=== PATIENT | female | born 1960 | race Caucasian/White ===

== ENCOUNTER 2016-07-22 17:12 | Emergency (ER) | payer BC ==
[2016-07-22 19:31] VITALS: BP 134/76
--- NOTE | 2016-07-22 20:10 | UC ---
Respiratory Complaint HPI - HPI Summary HPI Summary: Cough, nasal congestion, laryngitis, wheezing starting about 5 days ago. Has had similar symptoms 2 other times starting in late May, getting exhausted. Sx have improved each time except for nagging cough. Denies fever over 100F. - History of Current Complaint Chief Complaint: UCGeneralIllness Stated Complaint: SORE THROAT,EAR,COUGH Time Seen by Provider: 07/22/16 19:45 Hx Obtained From: Patient ?: No Onset/Duration: Gradual Onset, Lasting Days Timing: Constant Severity Initially: Mild Severity Currently: Mild Character: Cough: Nonproductive Aggravating Factors: Deep Breaths, Recumbent Position Alleviating Factors: Upright Position Associated Signs And Symptoms: Positive: Wheezing, URI, Nasal Congestion, Hoarseness - Allergies/Home Medications Allergies/Adverse Reactions: Allergies Allergy/AdvReac Type Severity Reaction Status Date / Time Adhesive Tape Allergy ITCHY RASH Verified 07/22/16 19:31 PMH/Surg Hx/FS Hx/Imm Hx Endocrine History Of: Denies: Diabetes Cardiovascular History Of: Denies: Hypertension, Myocardial Infarction Respiratory History Of: Denies: COPD, Asthma GI/ History Of: Reports: Ulcer - HISTORY OF ULCERATIVE COLITIS- STATES UNDER CONTROL WITH PROBIOTIC AND BIOC Neurological History Of: Reports: Migraine - UNDER CONTROL- SINCE TAKING PROPRANOLOL - Surgical History Surgical History: Yes Surgery Procedure, Year, and Place: Hysterectomy. C5/6 NECK FUSION- [place]- 6 WEEKS AGO. TUBAL LIGATION. 3 LAPAROSCOPIES- FOR [place]OMETRIOS[place]- [place] [facility] [place]LE[place]ST[place] - Family History Known Family History: Positive: Hypertension - Social History Alcohol Use: Occasionally Substance Use Type: None Smoking Status (MU): Never Smoked Tobacco Review of Systems Constitutional: Negative Skin: Negative Eyes: Negative ENT: Sore Throat, Nasal Discharge Respiratory: Cough Cardiovascular: Negative Gastrointestinal: Negative Genitourinary: Negative Motor: Negative Neurovascular: Negative Musculoskeletal: Negative Neurological: Negative Psychological: Negative All Other Systems Reviewed And Are Negative: Yes Physical Exam Triage Information Reviewed: Yes Appearance: Well-Appearing, No Pain Distress, Well-Nourished Vital Signs: Initial Vital Signs Temp 97.5 F 07/22/16 19:24 Pulse 68 07/22/16 19:24 Resp 16 07/22/16 19:24 BP 134/76 07/22/16 19:24 Pulse Ox 100 07/22/16 19:24 ENT: Positive: Hearing grossly normal, Pharynx normal, Nasal congestion, TMs normal, Muffled/hoarse voice - hoarse Dental Exam: Normal Neck exam: Normal Neck: Positive: Supple, Nontender, No Lymphadenopathy Respiratory Exam: Other - occ cough Respiratory: Positive: Lungs clear, Normal breath sounds, No respiratory distress, No accessory muscle use Cardiovascular Exam: Normal Cardiovascular: Positive: RRR, No Murmur Musculoskeletal Exam: Normal Neurological Exam: Normal Neurological: Positive: Alert Psychological Exam: Normal Skin Exam: Normal Diagnostic Evaluation - Laboratory O2 Sat by Pulse Oximetry: 100 Respiratory Course/Dx - Differential Dx/Diagnosis Provider Diagnoses: URI, likely viral. laryngitis Discharge - Discharge Plan Condition: Stable Disposition: HOME Prescriptions: Albuterol HFA INHALER* [Ventolin HFA Inhaler*] 1 - 2 puff INH Q4H PRN #1 mdi PRN Reason: wheeze, cough Benzonatate CAP* [Tessalon 100 MG CAP*] 100 mg PO TID PRN #30 cap PRN Reason: Cough Guaifenesin-Codeine [Guaiatussin AC 100-10 mg/5Ml] 5 - 10 ml PO Q6H #240 ml MDD 40mL Patient Education Materials: Upper Respiratory Infection (ED), Laryngitis (ED) Referrals: Saul Martinez MD [Primary Care Provider] - Additional Instructions: Call or return if you develop increasing fever, shortness of breath, chest pain , bloody sputum, or otherwise worsen. If you have not improved at all after several days, contact your primary care physician or return here.
== END 2016-07-22 20:07 | disposition home or self-care (01) ==
LOC: UCCORT 17:12
DX: J06.9 Acute upper respiratory infection, unspecified (principal); J04.0 Acute laryngitis; Z90.49 Acquired absence of other specified parts of digestive tract
CPT/HCPCS: 99212; G0463

== ENCOUNTER 2017-05-07 10:43 | Emergency (ER) | payer BC ==
[2017-05-07 12:22] VITALS: BP 148/85
--- NOTE | 2017-05-07 12:59 | UC ---
Skin Complaint HPI - HPI Summary HPI Summary: URI with congestion and cough has been improving and is mainly resolved. The main reason for the visit is the rash that has been present for two weeks and is itchy. It started with one patch on the mid flank. it has spread to the trunk. No new foods, exposures, products. - History of Current Complaint Chief Complaint: UCRash Time Seen by Provider: 05/07/17 12:30 Stated Complaint: SKIN COMPLAINT Hx Obtained From: Patient Hx Last Menstrual Period: n/a ?: No Onset/Duration: Gradual Onset, Lasting Weeks, Still Present Skin Exposure Onset/Duration: Weeks Ago Timing: Constant Onset Severity: Moderate Current Severity: Moderate Location: Diffuse Character: Pruritus - Allergy/Home Medications Allergies/Adverse Reactions: Allergies Allergy/AdvReac Type Severity Reaction Status Date / Time Adhesive Tape Allergy ITCHY RASH Verified 05/07/17 12:22 Review of Systems Skin: Rash All Other Systems Reviewed And Are Negative: Yes PMH/Surg Hx/FS Hx/Imm Hx Previously Healthy: Yes - Surgical History Surgical History: Yes Surgery Procedure, Year, and Place: Hysterectomy. C5/6 NECK FUSION- [facility]- 2016. TUBAL LIGATION. 3 LAPAROSCOPIES- FOR ENDOMETRIOSIS- [place] [facility] [place]LE[place]ST[place] - Family History Known Family History: Positive: Hypertension - Social History Lives: With Family Alcohol Use: Occasionally Substance Use Type: None Smoking Status (MU): Never Smoked Tobacco Physical Exam Triage Information Reviewed: Yes Appearance: Well-Appearing, No Pain Distress, Well-Nourished Vital Signs: Initial Vital Signs Temp 99.2 F 05/07/17 12:15 Pulse 81 05/07/17 12:15 Resp 16 05/07/17 12:15 BP 148/85 05/07/17 12:15 Pulse Ox 100 05/07/17 12:15 Vital Signs Reviewed: Yes Eye Exam: Normal Eyes: Positive: Conjunctiva Clear ENT: Positive: Normal ENT inspection Neck: Positive: Supple, Nontender, No Lymphadenopathy. Negative: Nuchal Rigidity Respiratory: Positive: Lungs clear, Normal breath sounds, No respiratory distress, No accessory muscle use, Respiratory distress Cardiovascular: Positive: No Murmur, Pulses Normal, Brisk Capillary Refill Abdomen Description: Positive: Soft. Negative: Guarding Musculoskeletal: Positive: Strength Intact, ROM Intact, No Edema Neurological: Positive: Alert, Muscle Tone Normal. Negative: Fatigued Psychological: Positive: Age Appropriate Behavior Skin Exam: Other - one oval patch on the left flank with slight dry ring. There are other small patches scatterred about the trunk. There is red patch under the left breast. Course/Dx - Course Course Of Treatment: this is most c/w Pitariasis Rosea. We will treat symptomatically. We also talked about possible bx should symptoms not resolve. We discussed possible sarcoidosis should it not get better. She has no other signs or symptoms of systemic inflammation. - Diagnoses Provider Diagnoses: rash. uri Discharge - Discharge Plan Condition: Good Disposition: HOME Prescriptions: hydrOXYzine HCL TAB* [Atarax 25 MG TAB*] 25 mg PO TID PRN #20 tab PRN Reason: Itching Nystatin CREAM* [Nystatin Cream*] 1 applic TOPICAL BID #30 tube Triamcinolone 0.1% Oint (NF) [Triamcinolone Acetonide] 1 % TRANSDERM BID PRN # 30 oin PRN Reason: Rash Patient Education Materials: Pityriasis rosea (ED) Referrals: Erendira Mac MD [Primary Care Provider] -
== END 2017-05-07 12:58 | disposition home or self-care (01) ==
LOC: UCCORT 10:43
DX: R21 Rash and other nonspecific skin eruption (principal); J06.9 Acute upper respiratory infection, unspecified; Z91.048 Other nonmedicinal substance allergy status; Z90.710 Acquired absence of both cervix and uterus; Z90.49 Acquired absence of other specified parts of digestive tract
CPT/HCPCS: 99212; G0463

== ENCOUNTER 2018-04-21 12:53 | Emergency (ER) | payer BC ==
[2018-04-21 13:31] VITALS: BP 151/86
--- NOTE | 2018-04-21 14:17 | UC ---
Knee Pain HPI - HPI Summary HPI Summary: LEFT KNEE PAIN AND SWELLING X 2 DAYS NO KNOWN INJURY , RADIATION OF THE PAIN TO HER CALF AND LOWER LEG WORSE WITH WALKING , BETTER WITH REST AND ICE - History of Current Complaint Chief Complaint: UCLowerExtremity Stated Complaint: LT KNEE PAIN Time Seen by Provider: 04/21/18 13:45 Hx Obtained From: Patient Hx Last Menstrual Period: n/a ?: No Onset/Duration: Gradual Onset, Lasting Days - 2, Still Present Severity Initially: Moderate Severity Currently: Moderate Pain Intensity: 5 Character: Dull, Aching Aggravating Factor(s): Movement, Weight Bearing, Prolonged Standing, Stairs Alleviating Factor(s): Rest, Cold Associated Signs And Symptoms: Positive: Swelling. Negative: Redness, Bruising , Fever, Weakness, Numbness, Tingling Able to Bear Weight: Yes - Allergies/Home Medications Allergies/Adverse Reactions: Allergies Allergy/AdvReac Type Severity Reaction Status Date / Time Adhesive Tape Allergy ITCHY RASH Verified 05/07/17 12:22 Home Medications: Home Medications Acetaminophen [8 Hour Arthritis Pain Rel] 1,300 mg PO ONCE 04/21/18 [History Confirmed 04/21/18] PMH/Surg Hx/FS Hx/Imm Hx - Additional Past Medical History Additional PMH: HISTORY OF ULCERATIVE COLITIS- STATES UNDER CONTROL WITH PROBIOTIC AND BIOC HX OF OSTEOARTHRITIS - Surgical History Surgical History: Yes Surgery Procedure, Year, and Place: Hysterectomy. C5/6 NECK FUSION- [facility]- 2015. TUBAL LIGATION. 3 LAPAROSCOPIES- FOR ENDOMETRIOSIS- ONE DONE AT [facility] – [place]. CHOLECYSTECTOMY. LUMBAR FUSION - Family History Known Family History: Positive: Hypertension - Social History Alcohol Use: Occasionally Substance Use Type: None Smoking Status (MU): Never Smoked Tobacco Review of Systems All Other Systems Reviewed And Are Negative: Yes Constitutional: Positive: Negative Skin: Positive: Negative Eyes: Positive: Negative ENT: Positive: Negative Is Patient Immunocompromised?: No Physical Exam Triage Information Reviewed: Yes Appearance: Well-Appearing, Obese Vital Signs: Initial Vital Signs Temp 97.3 F 04/21/18 13:28 Pulse 80 04/21/18 13:28 Resp 17 04/21/18 13:28 BP 151/86 04/21/18 13:28 Pulse Ox 100 04/21/18 13:28 Vital Signs Reviewed: Yes Eye Exam: Normal Eyes: Positive: Conjunctiva Clear ENT: Positive: Normal ENT inspection, Hearing grossly normal, Pharynx normal Neck: Positive: Supple, Nontender, No Lymphadenopathy Respiratory: Positive: Chest non-tender, Lungs clear, Normal breath sounds Cardiovascular: Positive: RRR, No Murmur, Pulses Normal Musculoskeletal: Positive: Other: - LEFT KNEE : + SWELLING, + EFFUSION , DIFFUSE TENDERNESS, PAIN WITH ROM ON FLEXION , STABLE LIGAMENTS Diagnostics - Laboratory Diagnostic Studies Completed/Ordered: left knee xray : IMPRESSION: Degenerative changes medial compartment of the left knee. Degenerative changes. of the patellofemoral joint. Knee Pain Course/Dx - Differential Dx/Diagnosis Provider Diagnosis: Left knee pain Discharge - Sign-Out/Discharge Documenting (check all that apply): Patient Departure All imaging exams completed and their final reports reviewed: Yes - Discharge Plan Condition: Stable Disposition: HOME Prescriptions: Naproxen [Naproxen 500 mg tab] 500 mg PO BID #20 tablet. Patient Education Materials: Osteoarthritis (ED), Swollen Knee Joint (ED) Referrals: Erendira Mac MD [Primary Care Provider] - Ezio Mckay MD [Medical Doctor] - As Soon As Possible - Billing Disposition and Condition Condition: STABLE Disposition: Home
== END 2018-04-21 14:36 | disposition home or self-care (01) ==
LOC: UCCORT 12:53
DX: M25.562 Pain in left knee (principal)
CPT/HCPCS: 99211; G0463

== ENCOUNTER 2023-02-28 08:45 | Observation (INO) ==
[~2023-02-28 08:45] MED LIST: Buffered Lidocaine 1% SYRIN 1 ml INTRADERM ONE; Lactated Ringers 1000 ml BAG 1,000 ML IV SCH
[2023-05-29] MEDS ORDERED: Lactated Ringers 1000 ml BAG 1,000 ML IV SCH (06:00)
[2023-05-29] MEDS ORDERED: Buffered Lidocaine 1% SYRIN 1 ml INTRADERM ONE (06:00)
[2023-05-29] MEDS ORDERED: Famotidine IV 10 MG/ML 2 ml VIAL (20 mg) IV ONE (06:00)
[2023-05-29] MEDS ORDERED: Lidocaine 2% PF 5 ML VIAL ONE (10:44)
[2023-05-29] MEDS ORDERED: Glycopyrrolate IV 0.2 MG/ML 1 ML VIAL ONE (10:45)
[2023-05-29] MEDS ORDERED: fentaNYL 100 mcg/2 ml 50 MCG/ML VIAL ONE (10:45)
[2023-05-29] MEDS ORDERED: Ondansetron 4 mg VIAL 2 MG/ML 2 ml VIAL ONE ×2 (10:45→15:44)
[2023-05-29] MEDS ORDERED: Midazolam 2 mg/2 ml VIAL 1 mg/ml 2 ml VIAL (2 mg) ONE (10:45)
[2023-05-29 11:03] LABS: Rapid COVID-19 Molecular Undetected (Undetected)
[2023-05-29] MEDS ORDERED: ceFAZolin 2 GM PREMIX 2 GM/50 ML BAG ONE (11:33)
[2023-05-29] MEDS ORDERED: Buffered Lidocaine 1% SYRIN 1 ml ONE (11:33)
[2023-05-29] MEDS ORDERED: Tranexamic Acid 1 GM/100ML BAG 2,000 MG/200 ML BAG IV ONE (11:33)
[2023-05-29] MEDS ORDERED: Famotidine IV 10 MG/ML 2 ml VIAL (20 mg) ONE (11:33)
[2023-05-29] MEDS ORDERED: ROPIVACAINE 5 MG/ML 30 ML BTL (0.5%) ONE (11:52)
[2023-05-29] MEDS ORDERED: Bupivacaine 0.5% 50 ML MDV VIAL ONE (12:08)
[2023-05-29] MEDS ORDERED: Propofol 10 MG/ML 20 ML BTL ONE (12:42)
[2023-05-29] MEDS ORDERED: Rocuronium 50 mg VIAL 10 mg/ml 5 ml VIAL (50 mg) ONE ×2 (12:44→13:34)
[2023-05-29] MEDS ORDERED: fentaNYL 250 mcg/5 ml 50 MCG/ML 5 ml VIAL (250 MCG) ONE (12:57)
[2023-05-29] MEDS ORDERED: KETAMINE HCL 10 MG/ML 20 ml VIAL (200 MG) ONE (12:57)
[2023-05-29] MEDS ORDERED: HYDROmorphone 0.5 MG/0.5 ML SYRINGE ONE (12:57)
[2023-05-29] MEDS ORDERED: HYDROmorphone 1 MG/1 ML SYRINGE IV PRN (13:05)
[2023-05-29] MEDS ORDERED: Naloxone 0.4 mg VIAL 0.4 mg/ml 1 ml VIAL IV PRN (13:05)
[2023-05-29] MEDS ORDERED: fentaNYL 100 mcg/2 ml 50 MCG/ML VIAL IV PRN (13:05)
[2023-05-29] MEDS ORDERED: Ondansetron 4 mg VIAL 2 MG/ML 2 ml VIAL IV PRN ×2 (13:05→15:25)
[2023-05-29] MEDS ORDERED: Dexamethasone IV 4 MG/ML VIAL 1 ml VIAL ONE (13:12)
[2023-05-29] MEDS ORDERED: Lactulose 30 ml UDC PO PRN (15:25)
[2023-05-29] MEDS ORDERED: Morphine 2 MG/ML SYRINGE IV PRN (15:25)
[2023-05-29] MEDS ORDERED: Magnesium Hydroxide LIQ 30 ML UDC PO PRN (15:25)
[2023-05-29] MEDS ORDERED: Ondansetron ODT 4 mg TAB 4 MG TAB PO PRN (15:25)
[2023-05-29] MEDS: Lactated Ringers 1000 ml BAG 1,000 ML IV SCH (17:13)
[2023-05-29] MEDS ORDERED: Carboxymethylcellulos 1% OPTH 1 AMP BOTH EYES PRN (18:42)
[2023-05-29] MEDS: Magnesium Hydroxide LIQ 30 ML UDC PO SCH (20:13)
[2023-05-29] MEDS: ceFAZolin 1 GM ADVAN 1 GM in NS 0.9% 50 ML 50 ML IVPB SCH (20:53)
[2023-05-30] MEDS: Lactated Ringers 1000 ml BAG 1,000 ML IV SCH (03:48)
[2023-05-30] MEDS: ceFAZolin 1 GM ADVAN 1 GM in NS 0.9% 50 ML 50 ML IVPB SCH ×2 (05:00→11:20)
[2023-05-30 06:02] LABS: Platelet Count 242 10^3/uL (150-450)
[2023-05-30 06:23] LABS: Hematocrit 40.1 % (35-45); Hemoglobin 13.5 g/dL (11.5-14.3); Mean Platelet Volume 7.5 fL (7.5-11.2)
[2023-05-30 06:27] LABS: Calcium 8.7 mg/dL (8.6-10.3); Creatinine, Serum 0.86 mg/dL (0.51-0.95); Potassium 4.4 mmol/L (3.5-5.0); eGFR CKD-EPI 76.8 (>60)
[2023-05-30] MEDS: Magnesium Hydroxide LIQ 30 ML UDC PO SCH (08:42)
[2023-05-30] MEDS ORDERED: Vitamin THERAPEUTIC TAB PO SCH (09:00)
[2023-05-30 10:12] VITALS: BP 124/70
== END 2023-05-30 12:55 | disposition home or self-care (01) ==
LOC: AA 05-29 09:50 → INTOOBSV 05-29 09:50 → SSU 05-29 16:44
PROVIDERS: ADMIT Orthopaedic Surgery Adult Reconstructive Orthopaedic Surgery; ATTEND Orthopaedic Surgery Adult Reconstructive Orthopaedic Surgery

== ENCOUNTER 2024-02-05 13:18 | Observation (INO) ==
[~2024-02-05 13:18] MED LIST changes: -Buffered Lidocaine 1% SYRIN 1 ml INTRADERM ONE; +HYDROmorphone 1 MG/1 ML SYRINGE IV PRN; -Lactated Ringers 1000 ml BAG 1,000 ML IV SCH; +Naloxone 0.4 mg VIAL 0.4 mg/ml 1 ml VIAL IV PRN; +Ondansetron 4 mg VIAL 2 MG/ML 2 ml VIAL IV PRN; +fentaNYL 100 mcg/2 ml 50 MCG/ML VIAL IV PRN
[2024-02-05] MEDS ORDERED: Ondansetron 4 mg VIAL 2 MG/ML 2 ml VIAL ONE (13:34)
[2024-02-05] MEDS ORDERED: Dexamethasone IV 4 MG/ML VIAL 1 ml VIAL ONE ×2 (13:34→14:51)
[2024-02-05] MEDS ORDERED: fentaNYL 250 mcg/5 ml 50 MCG/ML 5 ml VIAL (250 MCG) ONE (13:34)
[2024-02-05] MEDS ORDERED: Lidocaine 2% PF 5 ML VIAL ONE (13:34)
[2024-02-05] MEDS ORDERED: Propofol 10 MG/ML 20 ML BTL ONE ×3 (13:34→16:55)
[2024-02-05] MEDS ORDERED: Midazolam 2 mg/2 ml VIAL 1 mg/ml 2 ml VIAL (2 mg) ONE (13:34)
[2024-02-05] MEDS ORDERED: Tranexamic Acid 1 GM/100ML BAG 2,000 MG/200 ML BAG IV ONE (13:49)
[2024-02-05] MEDS ORDERED: ceFAZolin 2 GM PREMIX 2 GM/50 ML BAG ONE (13:50)
[2024-02-05 14:10] LABS: Rapid COVID-19 Molecular Undetected (Undetected)
[2024-02-05] MEDS ORDERED: Scopolamine 1 mg/72hr PATCH ONE (14:15)
[2024-02-05] MEDS: Lactated Ringers 1000 ml BAG 1,000 ML IV SCH ×2 (14:47→22:04)
[2024-02-05] MEDS: Scopolamine 1 mg/72hr PATCH TRANSDERM ONE (14:48)
[2024-02-05] MEDS ORDERED: ROPIVACAINE 5 MG/ML 30 ML BTL (0.5%) ONE ×2 (14:51→15:36)
[2024-02-05] MEDS ORDERED: Midazolam 5 mg/5 ml VIAL 1 mg/ml 5 ml VIAL (5 mg) ONE (14:51)
[2024-02-05] MEDS ORDERED: fentaNYL 100 mcg/2 ml 50 MCG/ML VIAL ONE (14:53)
[2024-02-05] MEDS ORDERED: Phenylephrine IV 10 MG/ML 1 ml VIAL ONE (16:10)
[2024-02-05] MEDS ORDERED: Calcium Carb (TUMS) 500 mg CHEW TAB PO PRN (16:47)
[2024-02-05] MEDS ORDERED: Ondansetron 4 mg VIAL 2 MG/ML 2 ml VIAL IV PRN (16:47)
[2024-02-05] MEDS ORDERED: Magnesium Hydroxide LIQ 30 ML UDC PO PRN (16:47)
[2024-02-05] MEDS ORDERED: Lactulose 30 ml UDC PO PRN (16:47)
[2024-02-05] MEDS ORDERED: Ondansetron ODT 4 mg TAB 4 MG TAB PO PRN (16:47)
[2024-02-05] MEDS ORDERED: KETAMINE HCL 10 MG/ML 20 ml VIAL (200 MG) ONE (16:56)
[2024-02-05] MEDS ORDERED: Glycopyrrolate IV 0.2 MG/ML 1 ML VIAL ONE (16:57)
[2024-02-05] MEDS ORDERED: RIZATRIPTAN 10 MG PO PRN (20:37)
[2024-02-05] MEDS: Magnesium Hydroxide LIQ 30 ML UDC PO SCH (23:33)
[2024-02-05] MEDS: ceFAZolin 2 GM PREMIX 2 GM/50 ML BAG IV SCH (23:33)
[2024-02-05] MEDS: Morphine 2 MG/ML SYRINGE IV PRN (23:33)
[2024-02-06 05:56] LABS: Hematocrit 40.6 % (35-45); Hemoglobin 13.5 g/dL (11.5-14.3); Mean Platelet Volume 7.1 fL (7.5-11.2); Platelet Count 242 10^3/uL (150-450)
[2024-02-06 06:35] LABS: Calcium 8.7 mg/dL (8.6-10.3); Creatinine, Serum 0.73 mg/dL (0.51-0.95); Potassium 4.3 mmol/L (3.5-5.0); eGFR CKD-EPI 92.9 (>60)
[2024-02-06] MEDS: Acetaminophen IV 1 GM/100ML 1,000 MG/100 ML BAG IV ONE (07:42)
[2024-02-06] MEDS: Buffered Lidocaine 1% SYRIN 1 ml INTRADERM ONE (07:42)
[2024-02-06] MEDS: Vitamin THERAPEUTIC TAB PO SCH (08:06)
[2024-02-06 10:33] VITALS: BP 121/82
== END 2024-02-06 12:45 | disposition home or self-care (01) ==
LOC: SSU 13:18 → OR 13:18
PROVIDERS: ADMIT Orthopaedic Surgery Adult Reconstructive Orthopaedic Surgery; ATTEND Orthopaedic Surgery Adult Reconstructive Orthopaedic Surgery